=== PATIENT | male | born 2000 | race African-American/Black ===

== ENCOUNTER 2020-12-08 09:56 | Emergency (ER) | payer SELFPAY ==
--- NOTE | 2020-12-08 10:19 | ER ---
Nurse's Notes [facility] Name: Mahin Alvarez Age: 19 yrs Sex: Male : 2000 Arrival Date: 12/08/2020 Time: 09:59 Bed 12 Private MD: Diagnosis: Dermatitis, unspecified;Encounter for screening for infections with a predominantly sexual mode of transmission Presentation: 12/08 10:10 Chief complaint: Patient states: reports skin rash on penis X 3 days. Coronavirus ld1 screen: At this time, the client does not indicate any symptoms associated with coronavirus-19. Ebola Screen: No symptoms or risks identified at this time. Initial Sepsis Screen: Does the patient meet any 2 criteria? No. Patient's initial sepsis screen is negative. Does the patient have a suspected source of infection? No. Patient's initial sepsis screen is negative. Risk Assessment: Do you want to hurt yourself or someone else? Patient reports no desire to harm self or others. Onset of symptoms was December 05, 2020. Care prior to arrival: None. 10:10 Method Of Arrival: Ambulatory ld1 10:10 Acuity: REBECCA 4 ld1 Triage Assessment: 10:13 General: Appears in no apparent distress. comfortable, Behavior is calm, cooperative, ld1 appropriate for age. Pain: Denies pain. EENT: No signs and/or symptoms were reported regarding the EENT system. Neuro: Level of Consciousness is awake, alert, obeys commands, Oriented to person, place, time, situation, Appropriate for age. Cardiovascular: Capillary refill < 3 seconds Patient's skin is warm and dry. Respiratory: Airway is patent Respiratory effort is even, unlabored, Respiratory pattern is regular, symmetrical. GI: Abdomen is flat, non-distended. : Reports Penile rash. Derm: Denies itching, pain. Derm: Reports peeling. Musculoskeletal: No signs and/or symptoms reported regarding the musculoskeletal system. Historical: - Allergies: 10:13 No Known Allergies; ld1 - Home Meds: 10:13 None [Active]; ld1 - PMHx: 10:13 None; ld1 - PSHx: 10:13 None; ld1 - Immunization history:: Adult Immunizations up to date. - Social history:: Smoking status: Patient denies any tobacco usage or history of. Screenin:35 Abuse screen: Denies threats or abuse. Denies injuries from another. Nutritional ld1 screening: No deficits noted. Tuberculosis screening: No symptoms or risk factors identified. Fall Risk None identified. Assessment: 10:35 Reassessment: See triage assessment. ld1 Vital Signs: 10:10 BP 121 / 88; Pulse 72; Resp 18; Temp 98.7(TE); Pulse Ox 98% ; Weight 79.38 kg; Height 5 ld1 ft. 11 in. (180.34 cm); Pain 0/10; 10:13 BP 121 / 88; Pulse 72; Resp 18; Temp 98.7(TE); Pulse Ox 98% on R/A; Weight 79.38 kg; ld1 Height 5 ft. 11 in. (180.34 cm); Pain 0/10; 10:13 Body Mass Index 24.41 (79.38 kg, 180.34 cm) ld1 ED Course: 09:59 Patient arrived in ED. am2 10:04 Taty Castanon, KRISTAN is Primary Nurse. ld1 10:05 Darwin Celis PA is PHCP. cp 10:05 Royer Crooks MD is Attending Physician. cp 10:12 Triage completed. ld1 10:13 Arm band placed on left wrist. Urine obtained. Urine : negative. ld1 10:17 Gabriel Chavarria MD is Referral Physician. cp 10:35 Patient has correct armband on for positive identification. Call light in reach. Pulse ld1 ox on. NIBP on. 10:35 No provider procedures requiring assistance completed. Patient did not have IV access ld1 during this emergency room visit. Administered Medications: 10:35 Drug: Rocephin (cefTRIAXone) 250 mg Route: IM; Site: right gluteus; ld1 10:38 Follow up: Response: No adverse reaction ld1 10:35 Drug: Zithromax (azithromycin) 1 grams Route: PO; ld1 10:38 Follow up: Response: No adverse reaction ld1 Outcome: 10:18 Discharge ordered by . cp 10:35 Discharged to home ambulatory. ld1 10:35 Condition: stable 10:35 Discharge instructions given to patient, Instructed on discharge instructions, follow up and referral plans. medication usage, Demonstrated understanding of instructions, follow-up care, medications. 10:39 Patient left the ED. ld1 Signatures: Darwin Celis PA PA cp Moreno, Amanda am2 Taty Castanon, RN RN ld1
--- NOTE | 2020-12-08 10:19 | EDPHYS ---
Physician Documentation [facility] Name: Mahin Alvarez Age: 19 yrs Sex: Male : 2000 Arrival Date: 12/08/2020 Time: 09:59 Bed 12 Private MD: ED Physician Royer Crooks HPI: 12/08 10:13 This 19 yrs old Black Male presents to ER via Ambulatory with complaints of Skin cp Problem. 10:13 The patient's rash thought to be caused by an unknown cause. The rash is located on the cp shaft of penis. 10:13 Onset: The symptoms/episode began/occurred 3 day(s) ago. cp 10:13 Associated signs and symptoms: Pertinent positives: itching, Pertinent negatives: cp burning sensation, fever, Pain. Treatment given at home: none. Patient also requesting testing for STDs. Historical: - Allergies: 10:13 No Known Allergies; ld1 - Home Meds: 10:13 None [Active]; ld1 - PMHx: 10:13 None; ld1 - PSHx: 10:13 None; ld1 - Immunization history:: Adult Immunizations up to date. - Social history:: Smoking status: Patient denies any tobacco usage or history of. ROS: 10:13 : Negative for urinary symptoms, penile discharge, testicular pain cp 10:13 Skin: Positive for rash, of the shaft of penis. Exam: 10:15 Constitutional: The patient appears in no acute distress, alert, awake, comfortable, cp non-toxic, well developed, well nourished. 10:15 Head/Face: Normocephalic, atraumatic. cp 10:15 Chest/axilla: Inspection: normal. 10:15 Cardiovascular: Rate: normal. 10:15 Respiratory: the patient does not display signs of respiratory distress, Respirations: normal. 10:15 Abdomen/GI: Inspection: abdomen appears normal, Palpation: abdomen is soft and non-tender, in all quadrants. 10:15 : Male external genitalia: multiple small areas of hypopigmented, non-tender, well-circumscribed areas with scale. Vital Signs: 10:10 BP 121 / 88; Pulse 72; Resp 18; Temp 98.7(TE); Pulse Ox 98% ; Weight 79.38 kg; Height 5 ld1 ft. 11 in. (180.34 cm); Pain 0/10; 10:13 BP 121 / 88; Pulse 72; Resp 18; Temp 98.7(TE); Pulse Ox 98% on R/A; Weight 79.38 kg; ld1 Height 5 ft. 11 in. (180.34 cm); Pain 0/10; 10:13 Body Mass Index 24.41 (79.38 kg, 180.34 cm) ld1 MDM: 10:08 Patient medically screened. cp 10:15 Differential diagnosis: herpes, dermatitis, genital warts. cp 10:18 Data reviewed: vital signs, nurses notes. cp 10:18 Counseling: I had a detailed discussion with the patient and/or guardian regarding: the cp historical points, exam findings, and any diagnostic results supporting the discharge/admit diagnosis, to return to the emergency department if symptoms worsen or persist or if there are any questions or concerns that arise at home. 12/08 10:15 Order name: Gc Culture 12/08 10:23 Order name: Urine Dipstick-Ancillary [facility] 12/08 10:15 Order name: Urine Dipstick-Ancillary (obtain specimen); Complete Time: 10:35 cp Administered Medications: 10:35 Drug: Rocephin (cefTRIAXone) 250 mg Route: IM; Site: right gluteus; ld1 10:38 Follow up: Response: No adverse reaction ld1 10:35 Drug: Zithromax (azithromycin) 1 grams Route: PO; ld1 10:38 Follow up: Response: No adverse reaction ld1 Disposition: 10:45 Chart complete. cp 12:44 Co-signature as Attending Physician, Royer Crooks MD. rn Disposition: 12/08/20 10:18 Discharged to Home. Impression: Dermatitis, unspecified, Encounter for screening for infections with a predominantly sexual mode of transmission. - Condition is Stable. - Discharge Instructions: Eczema, Sexually Transmitted Disease. - Prescriptions for Triamcinolone Acetonide 0.1 % Topical Ointment - apply 1 application by TOPICAL route every 12 hours As needed; 1 tube. - Medication Reconciliation Form, Thank You Letter, Antibiotic Education, Prescription Opioid Use form. - Follow up: Gabriel Chavarria MD; When: 1 week; Reason: Worsening of condition. - Problem is new. - Symptoms are unchanged. Signatures: Dispatcher [employer] [facility] Royer Crooks MD MD rn Darwin Celis PA PA cp Taty Castanon RN RN ld1 Corrections: (The following items were deleted from the chart) 10:39 10:18 12/08/2020 10:18 Discharged to Home. Impression: Dermatitis, unspecified; ld1 Encounter for screening for infections with a predominantly sexual mode of transmission. Condition is Stable. Forms are Medication Reconciliation Form, Thank You Letter, Antibiotic Education, Prescription Opioid Use. Follow up: Gabriel Chavarria; When: 1 week; Reason: Worsening of condition. Problem is new. Symptoms are unchanged. cp
[2020-12-08 10:22] LABS: Urine Blood Trace-intact (Negative); Urine Glucose Negative (Negative); Urine Protein Negative (Negative); Urine Specific Gravity >=1.030 (1.005-1.030)
[2020-12-08] MEDS ORDERED: CEFTRIAXONE 250 MG/VIAL ONE (10:44)
[2020-12-08] MEDS ORDERED: AZITHROMYCIN 250 MG TAB ONE (10:44)
[2020-12-08] MEDS ORDERED: LIDOCAINE 1% MPF 5 ML VIAL ONE (10:49)
== END 2020-12-08 10:39 | disposition home or self-care (01) ==
LOC: ER 09:56
DX: Z11.3 Encounter for screening for infections with a predominantly sexual mode of transmission (principal); L30.9 Dermatitis, unspecified
CPT/HCPCS: 81003; 96372; 99283; J0696

== ENCOUNTER 2024-11-03 04:54 | Emergency (ER) | payer SELFPAY ==
[2024-11-03] MEDS ORDERED: HYDROMORPHONE HCL 1 MG/ML INJ ONE (05:25)
[2024-11-03] MEDS ORDERED: PROMETHAZINE INJ 25 MG/ML AMP ONE (05:25)
[2024-11-03] MEDS ORDERED: NA CHLORIDE 0.9% 1,000 ML ONE (05:52)
[2024-11-03 05:55] LABS: Absolute Eosinophils 0.1 K/uL (0-0.5); Absolute Lymphocytes (CBC) 1.1 K/uL (0.7-4.9); Absolute Monocytes 0.6 K/uL (0.1-1.3); Absolute Neutrophil 15.1 K/uL (1.8-8.0); Basophils % 0.2 % (0-1.3); Eosinophils % 0.5 % (0-4.4); Hematocrit 44.4 % (39.6-49.0); Hemoglobin 15.3 g/dL (13.6-17.9); Lymphocytes % 6.5 % (15.3-44.8); MCH 30.1 pg (27.0-35.0); MCHC 34.6 g/dL (32.0-36.0); Monocytes % 3.6 % (3.3-12.3); Neutrophils % 89.2 % (41.7-73.7); Platelets 302 thou/uL (152-406); Red Cell Distribution Width 13.8 % (12.1-15.2)
[2024-11-03 06:14] LABS: Albumin/Globulin Ratio 1.4 (1.1-1.8); Anion Gap 7.5 mEq/L (5.0-15.0); Bilirubin Total 0.5 mg/dL (0.2-1.0); Globulin 2.9 g/dL (2.3-3.5); Potassium 3.5 mEq/L (3.5-5.1); Protein, Total 6.9 g/dL (6.4-8.2)
[2024-11-03 07:21] LABS: Blood Morphology Comment NOT SEEN (NOT SEEN); Platelet Estimate ADEQ; White Blood Cell Scan OK (OK)
--- NOTE | 2024-11-03 07:57 | RAD REPORT ---
EXAMINATION: US Abdomen Exam Limited CLINICAL HISTORY: HS MAIN N RUQ;Abd pain Bed Name: 7 COMPARISON: None. TECHNIQUE: Limited upper abdominal grayscale and color flow sonographic images. FINDINGS: Gallbladder: No wall thickening or pericholecystic fluid. No evidence of gallstones. Mild layering sl udge near the neck. No reported sonographic Rodriguez sign Bile ducts: No intrahepatic or extrahepatic biliary dilatation. Common bile duct measures 2 mm. Liver: Visualized portions of the liver demonstrate normal echogenicity with no suspicious findings. Fluid: No ascites. IMPRESSION: No abnormalities on right upper quadrant ultrasound apart from mild gallbladder sludge.
--- NOTE | 2024-11-03 08:39 | RAD REPORT ---
EXAMINATION: CT Abdomen Pelvis W Contrast CLINICAL INDICATION: Male, 23 years old. ABD PAIN TECHNIQUE: CT abdomen and pelvis was performed, after the administration of IV contrast, as per [facility] protocol. Axial, sagittal and coronal reconstructions were obtained. One or more of the following dose reduction techniques were used: Automated exposure control, adjustment of the mA and k V according to patient size, and iterative reconstruction. Unless otherwise specified, incidental findings do not require dedicated imaging follow-up. COMPARISON: No prior exam. FINDINGS: LOWER CHEST: The visualized lung bases are clear. LIVER: Normal in size and contour. No focal lesion. BILIARY SYSTEM: No suspicious abnormalities. SPLEEN: Normal size. No focal lesion. PANCREAS: No mass, ductal dilation, or neville-pancreatic fluid. ADRENALS: Normal; no mass. KIDNEYS: Normal size and contour. No hydronephrosis. Fluid density left renal cortical 2.2 cm cyst URINARY BLADDER: Unremarkable. GASTROINTESTINAL TRACT: No evidence of free air, significant intra-abdominal free fluid, bowel obstru ction or abscess. Moderate stool burden particularly along the ascending colon. APPENDIX: Normal appendix. LYMPH NODES: No lymphadenopathy. MUSCULOSKELETAL: No acute or suspicious osseous abnormality. ADDITIONAL FINDINGS: None. IMPRESSION: No acute or concerning abnormalities seen in the abdomen or pelvis. Moderate stool burden particularly along the ascending colon.
--- NOTE | 2024-11-03 09:16 | ER ---
Nurse's Notes [facility] Name: Mahin Alvarez Age: 23 yrs Sex: Male : 2000 Arrival Date: 11/03/2024 Time: 04:54 Bed 7 Private MD: Diagnosis: Abdominal pain, unspecified;Nausea with vomiting, unspecified Presentation: 11/03 05:00 Chief complaint: Patient states: WOKE UP VOMITING A FEW HRS AGO. NOW HAVING ABD jj7 CRAMPING. Coronavirus screen: At this time, the client does not indicate any symptoms associated with coronavirus-19. Ebola Screen: No symptoms or risks identified at this time. Initial Sepsis Screen: Does the patient meet any 2 criteria? No. Patient's initial sepsis screen is negative. Does the patient have a suspected source of infection? No. Patient's initial sepsis screen is negative. Risk Assessment: Do you want to hurt yourself or someone else? Patient reports no desire to harm self or others. Onset of symptoms was November 03, 2024. Care prior to arrival: Medication(s) given: Normal saline infusion, 650ML zofran 8 mg. 05:00 Method Of Arrival: EMS: [facility] jj7 05:00 Acuity: REBECCA 3 jj7 Triage Assessment: 05:00 General: Appears in no apparent distress. uncomfortable, Behavior is cooperative, jj7 appropriate for age. Pain: Complains of pain in abdomen. GI: Reports cramping, nausea, vomiting. Historical: - Allergies: 05:00 No Known Allergies; jj7 - PMHx: 05:00 None; jj7 - PSHx: 05:00 None; jj7 - Immunization history:: Adult Immunizations not up to date, Client reports having NOT received the Covid vaccine. Flu vaccine is not up to date. - Infectious Disease History:: Denies. - Social history:: Smoking status: Patient denies any tobacco usage or history of. Patient uses street drugs, marijuana, Patient/guardian denies using alcohol, IV drugs. Screenin:00 [facility] ED Fall Risk Assessment (Adult) History of falling in the last 3 months, jj7 including since admission No falls in past 3 months (0 pts) Confusion or Disorientation No (0 pts) Intoxicated or Sedated No (0 pts) Impaired Gait No (0 pts) Mobility Assist Device Used No (0 pt) Altered Elimination No (0 pt) Score/Fall Risk Level 0 - 2 = Low Risk Oriented to surroundings, Maintained a safe environment, Educated pt \T\ family on fall prevention, incl call for assistance when getting out of bed, Assessed \T\ reinforced patient's understanding of fall precautions. Abuse screen: Denies threats or abuse. Nutritional screening: No deficits noted. Tuberculosis screening: No symptoms or risk factors identified. Assessment: 05:00 Reassessment: SEE TRIAGE ASSESSMENT. jj7 06:50 Reassessment: PT TAKEN TO CT. SHAGGY WITH CT STATES PT REFUSES TO GET ON THE CT TABLE. jj7 REFUSES CT. INFORMED. SPEAKS TO PT AND PT AGREES TO CT. 06:57 Reassessment: PT TAKEN BACK TO CT AND REFUSES CT AGAIN. INFORMED. j7 07:15 General: Appears in no apparent distress. comfortable, well groomed, well developed, kc6 Behavior is calm, cooperative, appropriate for age. Neuro: Level of Consciousness is awake, alert, obeys commands, Oriented to person, place, time, situation, Appropriate for age. Cardiovascular: Capillary refill < 3 seconds. Respiratory: Airway is patent Trachea midline Respiratory effort is even, unlabored, Respiratory pattern is regular, symmetrical. GI: Abdomen is flat, non-distended, Bowel sounds present X 4 quads. Reports nausea, vomiting, Patient currently denies diarrhea. : No signs and/or symptoms were reported regarding the genitourinary system. EENT: No signs and/or symptoms were reported regarding the EENT system. Derm: No signs and/or symptoms reported regarding the dermatologic system. Skin is intact, is healthy with good turgor, Skin is pink, warm \T\ dry. Musculoskeletal: No signs and/or symptoms reported regarding the musculoskeletal system. Circulation, motion, and sensation intact. Range of motion: intact in all extremities. 08:29 Reassessment: Patient appears in no apparent distress at this time. No changes from kc6 previously documented assessment. Patient and/or family updated on plan of care and expected duration. Pain level reassessed. Patient is alert, oriented x 3, equal unlabored respirations, skin warm/dry/pink. Patient states feeling better. Patient states symptoms have improved. Vital Signs: 05:00 BP 141 / 96; Pulse 65; Resp 17; Pulse Ox 99% ; Weight 63.5 kg; Height 6 ft. 0 in. ; jj7 06:06 BP 131 / 100; Pulse 54; Resp 16; Pulse Ox 100% ; Pain 0/10; jj7 07:15 BP 148 / 94; Pulse 71; Resp 17 S; Pulse Ox 100% on R/A; kc6 09:29 BP 146 / 91; Pulse 65; Resp 16; Pulse Ox 99% ; bp 05:00 Body Mass Index 18.99 (63.50 kg, 182.88 cm) jj7 06:06 Pain Scale: Adult [facility] ED Course: 04:58 Patient arrived in ED. jj6 05:00 Arm band placed on right wrist. Patient placed in an exam room, on a stretcher. jj7 05:00 Patient has correct armband on for positive identification. Placed in gown. Bed in low jj7 position. Call light in reach. Side rails up X 1. Adult w/ patient. Provided Education on: USE OF CALL LI. Warm blanket given. Assisted to bathroom. 05:00 Maintain EMS IV. Dressing intact. Good blood return noted. Site clean \T\ dry. Gauge \T\ jj 7 site: 20G LEFT AC. 05:24 Reuben Griggs MD is Attending Physician. sp3 05:32 Richard Roberts, RN is Primary Nurse. jj7 05:35 Triage completed. jj7 05:48 CBC with Diff Sent. jj7 05:48 CMP Sent. jj7 05:49 Lipase Sent. jj7 05:56 Lactate w/ 2H reflex if indic. Sent. jj7 06:05 US Abdomen Limited In Process Unspecified. EDMS 07:02 Report given to QUE RUSHING. jj7 07:15 Attending Physician role handed off by Reuben Griggs MD rn 07:15 Royer Crooks MD is Attending Physician. rn 07:45 CT Abd/Pelvis - IV Contrast Only In Process Unspecified. EDMS 09:30 No provider procedures requiring assistance completed. IV discontinued, intact, bp bleeding controlled, No redness/swelling at site. Pressure dressing applied. Administered Medications: 05:32 Drug: HYDROmorphone IVP 1 mg IVP once Route: IVP; Site: left antecubital; jj7 06:07 Follow up: Response: Marked relief of symptoms; Pain is decreased jj 05:32 Drug: Promethazine IVP 12.5 mg IVP once Route: IVP; Site: left antecubital; jj7 06:07 Follow up: Response: Marked relief of symptoms; Nausea is decreased jj7 05:56 Drug: NS 0.9% IV 1000 ml IV at 1 bolus Per protocol; to be given as a bolus over 60 jj7 minutes Route: IV; Rate: 1 bolus; Site: left antecubital; 08:30 Follow up: Response: No adverse reaction; IV Status: Completed infusion; IV Intake: kc6 1000ml Medication: 05:00 VIS not applicable for this client. jj7 Intake: 08:30 IV: 1000ml; Total: 1000ml. kc6 Outcome: 09:16 Discharge ordered by MD. rn 09:30 Discharged to home via wheelchair, with family, bp 09:30 Condition: stable 09:30 Discharge instructions given to patient, family, Instructed on discharge instructions, follow up and referral plans. medication usage, Demonstrated understanding of instructions, follow-up care, medications, Prescriptions given X 3, 09:31 Patient left the ED. bp Signatures: Dispatcher [employer] EDMS Royer Crooks MD MD rn Peltier, Brian RN RN Reuben Jensen MD MD sp3 Diane Chavez jj6 Lily Lopez RN RN kc6 Richard Roberts RN RN jj7
--- NOTE | 2024-11-03 09:17 | EDPHYS ---
Physician Documentation [facility] Name: Mahin Alvarez Age: 23 yrs Sex: Male : 2000 Arrival Date: 11/03/2024 Time: 04:54 Bed 7 Private MD: ED Physician Royer Crooks HPI: 11/03 05:35 This 23 yrs old Black Male presents to ER via EMS with complaints of Nausea/Vomiting. sp3 05:35 23-year-old male with history of biliary colic now presents with 2 to 3-day history of sp3 epigastric pain and vomiting. No significant past surgical history noted. Patient denies lower abdominal pain, back pain, chest pain, shortness of breath, fever, rash, bleeding, known sick contacts, travel history or any other signs or symptoms on ROS at this time.. Historical: - Allergies: 05:00 No Known Allergies; jj7 - PMHx: 05:00 None; jj7 - PSHx: 05:00 None; jj7 - Immunization history:: Adult Immunizations not up to date, Client reports having NOT received the Covid vaccine. Flu vaccine is not up to date. - Infectious Disease History:: Denies. - Social history:: Smoking status: Patient denies any tobacco usage or history of. Patient uses street drugs, marijuana, Patient/guardian denies using alcohol, IV drugs. ROS: 05:38 Constitutional: Negative for fever, chills, and weight loss, Eyes: Negative for injury, sp3 pain, redness, and discharge, ENT: Negative for injury, pain, and discharge, Neck: Negative for injury, pain, and swelling, Cardiovascular: Negative for chest pain, palpitations, and edema, Respiratory: Negative for shortness of breath, cough, wheezing, and pleuritic chest pain, Back: Negative for injury and pain, MS/Extremity: Negative for injury and deformity, Skin: Negative for injury, rash, and discoloration, Neuro: Negative for headache, weakness, numbness, tingling, and seizure, Psych: Negative for depression, anxiety, suicide ideation, homicidal ideation, and hallucinations, Allergy/Immunology: Negative for hives, rash, and allergies, Endocrine: Negative for neck swelling, polydipsia, polyuria, polyphagia, and marked weight changes, Hematologic/Lymphatic: Negative for swollen nodes, abnormal bleeding, and unusual bruising, 05:38 All other systems are negative, Exam: 05:39 Constitutional: This is a well developed, well nourished patient who is awake, alert, sp3 and in no acute distress. Head/Face: Normocephalic, atraumatic. Eyes: Pupils equal round and reactive to light, extra-ocular motions intact. Lids and lashes normal. Conjunctiva and sclera are non-icteric and not injected. Cornea within normal limits. Periorbital areas with no swelling, redness, or edema. Neck: Trachea midline, no thyromegaly or masses palpated, and no cervical lymphadenopathy. Supple, full range of motion without nuchal rigidity, or vertebral point tenderness. No Meningismus. Chest/axilla: Normal chest wall appearance and motion. Nontender with no deformity. No lesions are appreciated. Cardiovascular: Regular rate and rhythm with a normal S1 and S2. No gallops, murmurs, or rubs. Normal PMI, no JVD. No pulse deficits. Respiratory: Lungs have equal breath sounds bilaterally, clear to auscultation and percussion. No rales, rhonchi or wheezes noted. No increased work of breathing, no retractions or nasal flaring. Back: No spinal tenderness. No costovertebral tenderness. Full range of motion. Skin: Warm, dry with normal turgor. Normal color with no rashes, no lesions, and no evidence of cellulitis. MS/ Extremity: Pulses equal, no cyanosis. Neurovascular intact. Full, normal range of motion. Neuro: Awake and alert, GCS 15, oriented to person, place, time, and situation. Cranial nerves II-XII grossly intact. Motor strength 5/5 in all extremities. Sensory grossly intact. Cerebellar exam normal. Normal gait. Psych: Awake, alert, with orientation to person, place and time. Behavior, mood, and affect are within normal limits. 05:39 Abdomen/GI: 23-year-old male with epigastric pain and vomiting. Differential diagnosis includes biliary colic, cholelithiasis, cholecystitis, gastritis, pancreatitis, colitis, viral illness, foodborne illness, among others. I am not highly suspicious of sepsis, shock, cardiopulmonary pathology, aortic pathology or any other critical process at this time. Workup will include CT scan of the abdomen pelvis with IV contrast, ultrasound right upper quadrant, general labs, UA and treatment with normal saline, Dilaudid and antiemetics. Disposition pending workup and patient course., Vital Signs: 05:00 BP 141 / 96; Pulse 65; Resp 17; Pulse Ox 99% ; Weight 63.5 kg; Height 6 ft. 0 in. ; jj7 06:06 BP 131 / 100; Pulse 54; Resp 16; Pulse Ox 100% ; Pain 0/10; jj7 07:15 BP 148 / 94; Pulse 71; Resp 17 S; Pulse Ox 100% on R/A; kc6 09:29 BP 146 / 91; Pulse 65; Resp 16; Pulse Ox 99% ; bp 05:00 Body Mass Index 18.99 (63.50 kg, 182.88 cm) jj7 06:06 Pain Scale: Adult jj7 MDM: 05:24 Medical Screening Exam initiated sp3 09:14 Differential diagnosis: Nonspecific abd pain, gastritis, cholecystitis, pancreatitis, rn appendicitis, diverticulitis, viral gastroenteritis, gastroenteritis, chronic abd pain, IBD. Data reviewed: vital signs, nurses notes, lab test result(s), radiologic studies, CT scan, and as a result, I will discharge patient. Counseling: I had a detailed discussion with the patient and/or guardian regarding the historical points, exam findings, and any diagnostic results supporting the discharge/admit diagnosis, lab results, radiology results, the need for outpatient follow up, to return to the emergency department if symptoms worsen or persist or if there are any questions or concerns that arise at home. Response to treatment: the patient's symptoms have markedly improved after treatment, Patient resting comfortably, no apparent pain or distress., and as a result, I will discharge patient. Special discussion: I discussed with the patient/guardian in detail that at this point there is no indication for admission to the hospital. It is understood, however, that if the symptoms persist or worsen the patient needs to return immediately for re-evaluation. Based on the history and exam findings, there is no indication for further emergent testing or inpatient evaluation. I discussed with the patient/guardian the need to see the piping drafter for further evaluation of the symptoms. ED course: No acute findings and workup. Does have mild elevation of WBC, no acute surgical findings on CT abdomen pelvis. Lipase mildly elevated but not enough for acute pancreatitis diagnosis. Patient possibly with chronic pancreatitis versus inflammatory bowel disease versus functional abdominal pain. Mother states he has abdominal pain about twice a month similar episodes to this. Has never seen gastroenterology. Family member with Crohn's disease. Recommend GI follow-up, for now we will treat with antibiotics given elevated WBC and patient has never been here before. Patient is well from [place] and is just visiting. Patient will have difficulty with primary care follow-up for GI follow-up in the next few days so will prescribe antibiotics. I have personally reviewed all of the results, including but not limited to blood tests and imaging deemed necessary to safely discharge this patient at this time. All results given to and printed out for patient. I personally went over all the results with the patient and answered all questions. Patient will follow-up with PCP and or specialist as discussed. Return precautions given and understood.. 11/03 05:25 Order name: CBC with Diff; Complete Time: 08:51 sp3 11/03 05:25 Order name: CMP; Complete Time: 06:54 sp3 11/03 05:25 Order name: Lipase; Complete Time: 06:54 sp3 11/03 05:25 Order name: Lactate w/ 2H reflex if indic.; Complete Time: 06:54 sp3 11/03 07:21 Order name: CBC Smear Scan; Complete Time: 08:51 EDMS 11/03 05:25 Order name: CT Abd/Pelvis - IV Contrast Only; Complete Time: 08:51 sp3 11/03 05:40 Order name: US Abdomen Limited; Complete Time: 08:51 sp3 11/03 05:25 Order name: IV Saline Lock; Complete Time: 05:32 sp3 11/03 05:25 Order name: Labs collected and sent; Complete Time: 05:48 sp3 Administered Medications: 05:32 Drug: HYDROmorphone IVP 1 mg IVP once Route: IVP; Site: left antecubital; jj7 06:07 Follow up: Response: Marked relief of symptoms; Pain is decreased jj7 05:32 Drug: Promethazine IVP 12.5 mg IVP once Route: IVP; Site: left antecubital; jj7 06:07 Follow up: Response: Marked relief of symptoms; Nausea is decreased jj7 05:56 Drug: NS 0.9% IV 1000 ml IV at 1 bolus Per protocol; to be given as a bolus over 60 jj7 minutes Route: IV; Rate: 1 bolus; Site: left antecubital; 08:30 Follow up: Response: No adverse reaction; IV Status: Completed infusion; IV Intake: kc6 1000ml Disposition Summary: 11/03/24 09:16 Discharge Ordered Notes: Location: Home rn Problem: chronic rn Symptoms: have improved rn Condition: Stable rn Diagnosis - Abdominal pain, unspecified rn - Nausea with vomiting, unspecified rn Followup: rn - With: Private Physician - When: As needed - Reason: Recheck today's complaints, Re-evaluation by your physician Discharge Instructions: - Discharge Summary Sheet rn - Abdominal Pain, Adult rn - Nausea and Vomiting, Adult rn Forms: - Medication Reconciliation Form rn - Antibiotic return agent - Prescription Opioid Use rn - Patient Portal Instructions rn - Leadership Thank You Letter rn Prescriptions: - ondansetron 4 mg Oral Tablet,disintegrating - take 1 tablet ORAL route every 8 hours As needed; 12 tablet; Refills: 0, rn Product Selection Permitted - Flagyl 500 mg Oral Tablet - take 1 tablet ORAL route every 12 hours for 7 days; 14 tablet; Refills: 0, rn Product Selection Permitted - Cipro 500 mg Oral Tablet - take 1 tablet ORAL route every 12 hours for 7 days; 14 tablet; Refills: 0, rn Product Selection Permitted Signatures: Dispatcher [employer] EDRoyer Doshi MD MD rn Patel, Setul, MD MD sp3 Richard Roberts, RN RN jj7 Lily Lopez RN kc6 Corrections: (The following items were deleted from the chart) 05:26 05:26 CBC+H.LAB.BRZ ordered. EDMS EDMS 05:26 05:26 COMPREHENSIVE METABOLIC PANEL+C.LAB.BRZ ordered. EDMS EDMS 05:26 05:26 LIPASE+C.LAB.BRZ ordered. EDMS EDMS 05:26 05:26 Urinalysis+U.LAB.BRZ ordered. EDMS EDMS 05:26 05:26 LACTATE+C.LAB.BRZ ordered. EDMS EDMS 05:26 05:26 Abdomen Pelvis W Con+CT.RAD.BRZ ordered. EDMS EDMS
[2024-11-03 09:39] VITALS: BP 146/91; O2SAT 99
== END 2024-11-03 09:31 | disposition home or self-care (01) ==
LOC: ER 04:54
DX: R10.13 Epigastric pain (principal); R11.2 Nausea with vomiting, unspecified
CPT/HCPCS: 36415; 74177; 76705; 80053; 83605; 83690; 85025; 96361; 96374; 96375; 99284; J1171; J2550; J7030; Q9967